=== PATIENT | female | born 1995 | race Caucasian/White ===

== ENCOUNTER 2021-08-25 18:45 | Outpatient (CLI) | payer OTHER, SELFPAY ==
[2021-08-25 18:54] VITALS: PULSE 93; O2SAT 98
[2021-08-25 18:59] VITALS: PULSE 93; O2SAT 98
[2021-08-25 19:01] VITALS: BP 124/82; PULSE 116; RESP 16; TEMP 37.1; O2SAT 98
[2021-08-25 19:02] VITALS: BP 124/82; PULSE 89
--- NOTE | 2021-08-25 22:15 | PC.OBNST ---
NST Note NST Note Start: 08/25/21 22:06 Freq: Status: Active Protocol: Document 08/25/21 21:24 [facility] (Rec: 08/25/21 22:15 [facility] [id number]) NST Note 2 Para (# of births) 1 EDC 09/05/21 Patient Presented with Complaint(s) of Contractions/cramping Other Complaints ROL Reactive Yes Appropriate for Gestational Age Yes EVELYN Antonio RN Date 08/25/21 Reactive Yes Appropriate for Gestational Age Yes EVELYN Javier RN Date 08/25/21 OB NST charge No Provider Evaluation of EFM Strip: Reactive: [] Appropriate for Gestational Age: [] Comments:
--- NOTE | 2021-08-25 22:16 | PC.OBNST ---
NST Note NST Note Start: 08/25/21 22:06 Freq: Status: Active Protocol: Document 08/25/21 21:24 [facility] (Rec: 08/25/21 22:15 [facility] [id number]) NST Note 2 Para (# of births) 1 EDC 09/05/21 Patient Presented with Complaint(s) of Contractions/cramping Other Complaints ROL Reactive Yes Appropriate for Gestational Age Yes EVELYN Antonio RN Date 08/25/21 Reactive Yes Appropriate for Gestational Age Yes EVELYN Javier RN Date 08/25/21 OB NST charge No Provider Evaluation of EFM Strip: Reactive: [] Appropriate for Gestational Age: [] Comments:
--- NOTE | 2021-08-25 22:22 | PC.OBNST ---
NST Note NST Note Start: 08/25/21 22:06 Freq: Status: Discharge Protocol: Document 08/25/21 21:24 [facility] (Rec: 08/25/21 22:15 [facility] [id number]) NST Note 2 Para (# of births) 1 EDC 09/05/21 Patient Presented with Complaint(s) of Contractions/cramping Other Complaints ROL Reactive Yes Appropriate for Gestational Age Yes EVELYN Antonio RN Date 08/25/21 Reactive Yes Appropriate for Gestational Age Yes EVELYN Javier RN Date 08/25/21 OB NST charge No Provider Evaluation of EFM Strip: Reactive: [] Appropriate for Gestational Age: [] Comments:
--- NOTE | 2021-08-25 22:24 | PC.OBNST ---
NST Note NST Note Start: 08/25/21 22:06 Freq: Status: Discharge Protocol: Document 08/25/21 21:24 [facility] (Rec: 08/25/21 22:15 [facility] [id number]) NST Note 2 Para (# of births) 1 EDC 09/05/21 Patient Presented with Complaint(s) of Contractions/cramping Other Complaints ROL Reactive Yes Appropriate for Gestational Age Yes EVELYN Antonio RN Date 08/25/21 Reactive Yes Appropriate for Gestational Age Yes EVELYN Javier RN Date 08/25/21 OB NST charge No Provider Evaluation of EFM Strip: Reactive: [] Appropriate for Gestational Age: [] Comments:
--- NOTE | 2021-08-26 11:40 | PC.OBNST ---
NST Note NST Note Start: 08/25/21 22:06 Freq: Status: Discharge Protocol: Document 08/25/21 21:24 [facility] (Rec: 08/25/21 22:15 [facility] [id number]) NST Note 2 Para (# of births) 1 EDC 09/05/21 Patient Presented with Complaint(s) of Contractions/cramping Other Complaints ROL Reactive Yes Appropriate for Gestational Age Yes EVELYN Antonio RN Date 08/25/21 Reactive Yes Appropriate for Gestational Age Yes EVELYN Javeir RN Date 08/25/21 OB NST charge No Provider Evaluation of EFM Strip: Reactive: [] Appropriate for Gestational Age: [] Comments:
--- NOTE | 2021-08-26 14:24 | PC.OBNST ---
NST Note NST Note Start: 08/25/21 22:06 Freq: Status: Discharge Protocol: Document 08/25/21 21:24 [facility] (Rec: 08/25/21 22:15 [facility] [id number]) NST Note 2 Para (# of births) 1 EDC 09/05/21 Patient Presented with Complaint(s) of Contractions/cramping Other Complaints ROL Reactive Yes Appropriate for Gestational Age Yes EVELYN Antonio RN Date 08/25/21 Reactive Yes Appropriate for Gestational Age Yes EVELYN Javier RN Date 08/25/21 OB NST charge No Provider Evaluation of EFM Strip: Reactive: [] Appropriate for Gestational Age: [] Comments:
== END 2021-08-25 21:24 | disposition home or self-care (01) ==
LOC: OB OUT 19:03 → OB 19:53
PROVIDERS: PCP Family Medicine; Visit Provider Obstetrics & Gynecology
DX: O47.1 False labor at or after 37 completed weeks of gestation (principal); Z3A.38 38 weeks gestation of pregnancy
CPT/HCPCS: 59025; 99211

== ENCOUNTER 2021-09-02 02:49 | Inpatient (IN) | payer OTHER, SELFPAY ==
[2021-09-02] VITALS (55 sets, daily range): BP systolic 80–119; BP diastolic 45–82; PULSE 64–123; RESP 16–18; TEMP 36.6–36.8; O2SAT 97–100; BMI 28.5
[2021-09-02] MEDS: LACTATED RINGERS 1000 ML 1,000 ML 125 ML IV ×2 (03:31→04:30)
--- NOTE | 2021-09-02 03:50 | P.ANBPRC_ITS ---
PFSH PFSH Medical History (Updated 08/25/21 @ 20:19 by Henrietta Perez) History of hyperthyroidism History of varicella Hyperthyroidism Family History (Updated 08/19/21 @ 14:11 by Grace Blum) Paternal Grandmother Breast cancer, Onset Age: 76 Paternal Grandfather Heart disease Maternal Grandmother Ovarian cancer, Onset Age: 70 Social History Smoking Status: Never smoker Meds Home Medications and Allergies Home Medications Medication Instructions Recorded Confirmed Type ferrous sulfate 325 mg (65 mg 325 mg PO DAILY 08/25/21 09/02/21 History iron) tablet prenat.vits,abdirahman,[id number]-[id number] 1 tab PO QDAY 08/26/21 09/02/21 History Allergies Allergy/AdvReac Type Severity Reaction Status Date / Time No Known Allergies Allergy Verified 09/02/21 03:58 Results Vital Signs Vital Signs: Last Vital Signs Temp 97.8 F 09/02/21 03:36 Pulse 91 09/02/21 03:37 Resp 18 09/02/21 03:36 BP 110/65 09/02/21 03:37 Weight: 75.495 kg Height: 162.56 cm Anesthesia Procedures Epidural Insertion Patient Location: OB Reason for Block: primary anesthetic Patient Position: sitting Performed By: Femi Powell Preanesthetic Checklist: IV checked, risks and benefits discussed, surgical consent, monitors and equipment checked, pre-op evaluation, timeout performed and anesthesia consent Prep: chlorhexidine gluconate Monitoring: blood pressure monitoring, soda fountain operator, continuous pulse oximetry and heart rate Approach: midline Vertebral Space: lumbar (1-5) Epidural Technique: [place] saline Needle Type: Tuohy needle Injection Technique: continuous shot (catheter) Needle gauge: 17 Needle Length (cm): 10 cm Needle Insertion Depth (cm): 5 Catheter Gauge: 19 Catheter Type: multi-orifice Catheter at skin depth (cm): 10 Test Dose Result: negative and lidocaine 1.5% with epinephrine 1 to 200,000
[2021-09-02] MEDS: LIDOCAINE 2% (PF) 5 ML VIAL EPIDURAL (03:59)
[2021-09-02 04:04] LABS: SARS PCR* Negative SARS-CoV-2 (Negative)
[2021-09-02] MEDS: ROPIVACAINE 0.2% 100 ml 100 ML 12 MG EPIDURAL (04:07)
[2021-09-02] MEDS: PHENYLEPHRINE 100 MCG/ML SYRINGE IVP ×4 (04:24→06:56)
[2021-09-02] MEDS: ePHEDrine sulfate 5 MG/ML inj 10 MG IVP (04:48)
--- NOTE | 2021-09-02 06:45 | P.LDBA_ITS ---
Subjective History of Present Illness Narrative: Patient is being admitted to Labor and Delivery for early labor with cervical change. She is a 26 year old at weeks gestation. Her full history and physical was dictated by Onur Diaz CNM on 08/18/21. Please see this for details. 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 Son is Romy. Baby: [place] gender 1. Closely spaced pregnancies.? Delivered 02/25/2020. 2. History of abnormal Pap Pap 03/07/2019:? LGSIL Moneta. 03/29/2019:? NIHARIKA 1 Pap 08/2020: NIL HPV 03/2020: neg. HPV 3. Baby to have renal ultrasound 24 hours after delivery for finding of bilateral hydronephrosis on US. Enriqueta started shari yesterday evening. contractions started getting painful ad consistent around midnight and she arrived at L&D around 0230. On admit she was 6cm per RN exam and made change to 7cm at 0500. Contractions have been spac ing out and patient is requesting AROM to augment labor. OB - H&P: Exam Physical Exam: Vital signs: Temp Pulse Resp BP Pulse Ox 97.8 F 75 18 92/50 L 100 09/02/21 03:36 09/02/21 06:40 09/02/21 03:36 09/02/21 06:40 09/02/21 04:11 Constitutional: Constitutional: no acute distress Routine HEENT Exam: Head: Present atraumatic Routine Neck Exam: Neck: Present full ROM Detailed Labor and Delivery Exam: Patient Gravid: yes Dilation (cm): 7 Effacement (%): 90 Cervix position: mid Consistency: medium Contraction frequency (min): 7 Tachysystole: No Contraction intensity: Moderate Fetus (Single): Station: 0 Amniotic Membrane Status: AROM Amniotic Membrane Fluid Description: Clear Heart Rate Baseline: 135 Monitor Accelerations: Present Monitor Decelerations: None Ammonium Sulfate Operator Variability: Moderate (11-25) (6-25) Routine Back/Spine/Pelvis Exam: Back/Spine: full ROM Routine Psychiatric Exam: Present normal affect OB - Problem Based A/P Additional Plan (1) : Status: Acute Plan ASSESSMENT:? at 39.4 weeks gestation? GBS negative? Uncomplicated ? ?? PLAN:?? 1. AROM or labor augmentation? 2. Comfortable with an epidural anesthesia.? 3. Anticipate ? 4. Consider Pitocin if needed. ?
[2021-09-02] MEDS: OXYTOCIN 30 unit/500 ML in NS 30 UNIT/500 ML BAG 300 UNIT IVPB (08:40)
--- NOTE | 2021-09-02 08:58 | PM.OBPRCVD ---
Procedure Delivery date: 09/02/21 Procedure Done: Global Events: Other ( Renal bilateral hydronephrosis) Intrapartal Events: None Delivery augmentation: rupture of membranes Delivery monitor: external FHT and external uterine Route of delivery: Laceration description: None Estimated blood loss (mL): 25 Anesthesia type: Epidural Disposition: floor Narrative: The patient is a 26 year-old admitted on 09/02/2021 at 39 Weeks, 4 Days gestation for spontaneous onset of labor.? Cervical exam on admission was 5 cm/80 % effaced/-1 station with membranes intact in vertex presentation.? Contractions were every 2 minutes.? heart rate demonstrated baseline 135 bpm with moderate variability, + accelerations, - decelerations; a category 1 tracing.? AROM occurred at 0659 with clear fluid. ? Labor Analgesia:? Epidural ? Pitocin:? Yes, [facility]TS[facility] only ? Labor onset:? 09/02/2021 at 0000 ? Complete:? 0812, assumed with pushing ? Pushing:? 0812 ? heart tones during second stage were reassuring. ? Patient labored comfortably with epidural. AROM noted at 0659 AM with clear fluid. Patient assumed complete at time of pushing at 0812 AM. of a viable female at 0839 AM. Vertex delivered OA. No nuchal cord or shoulder. Body delivered easily and without incident. Infant passed to mothers abdomen with a vigorous cry. Cord was clamped and cut at > 5 minutes. APGARS were 8 at one minute and 9 at five minutes respectively. Mouth was bulb suctioned. Intact placenta with a 3 vessel cord delivered spontaneous at 0945AM. Fundus firm. Intact perineum.. QBL 50 cc. Mother and baby stable; mother plans to breastfeed. weight pending. ? Placenta delivered spontaneously and complete at 0848 with a 3 vessel cord. ? Mother and were stable after delivery. ? Lacerations:? Intact ? Blood loss: 50 mL. Blood loss measurement type: QBL ? Sponge and needles counts are correct. Infant Gender: Female presentation: vertex Placental Delivery Description: Spontaneous Cord Description: 3 Vessels OB Vag Delivery Procedures Additional Procedures ECV: No Cook Catheter Insertion: No NST: No D&C: No Laceration Repair: No Tubal Ligation : No Other: No
[2021-09-02] MEDS: IBUPROFEN 600 MG TABLET PO ×2 (12:27→18:48)
[2021-09-02] MEDS: ACETAMINOPHEN 500 MG TABLET 1000 MG PO ×2 (16:27→22:38)
[2021-09-03] MEDS: IBUPROFEN 600 MG TABLET PO (00:52)
[2021-09-03 00:53] VITALS: BP 105/68; PULSE 86; RESP 16; TEMP 36.4; O2SAT 98
[2021-09-03] MEDS: ACETAMINOPHEN 500 MG TABLET 1000 MG PO (04:19)
[2021-09-03 04:20] VITALS: BP 107/73; PULSE 77; RESP 16; TEMP 36.6; O2SAT 97
--- NOTE | 2021-09-03 07:16 | PM.OBDSVD1 ---
DS: Providers Provider Date of admission: 09/02/21 02:49 Primary care physician: Edmundo Ambrocio MD Admitting Clinician: Nubia Fernandez MD Attending Physician on discharge: Nubia Fernandez MD Date of Discharge: 09/03/21 DS: Diagnosis Discharge Diagnosis (1) : Status: Acute DS: Medications Discharge Medications Other Medication Instructions: You can take 625-1000 mg of Tylenol as needed for pain. Exam Const: Vital Signs, click to edit/add: Vital Signs - 24 hr 09/02/21 07:24 09/02/21 07:37 09/02/21 07:52 Temperature Pulse Rate 90 78 88 Pulse Rate [Pulse Oximeter] Respiratory Rate Blood Pressure 97/54 L 101/57 L 94/52 L Blood Pressure [Le ft Arm] Pulse Oximetry 09/02/21 08:07 09/02/21 08:19 09/02/21 08:24 Temperature 97.9 F Pulse Rate 81 105 H Pulse Rate [Pulse Oximeter] Respiratory Rate Blood Pressure 101/57 L 94/51 L Blood Pressure [Le ft Arm] Pulse Oximetry 09/02/21 08:37 09/02/21 08:48 09/02/21 09:03 Temperature 98.1 F Pulse Rate 123 H 100 88 Pulse Rate [Pulse Oximeter] Respiratory Rate 16 Blood Pressure 87/55 L 101/52 L 103/52 L Blood Pressure [Le ft Arm] Pulse Oximetry 09/02/21 09:18 09/02/21 09:33 09/02/21 09:48 Temperature Pulse Rate 80 85 78 Pulse Rate [Pulse Oximeter] Respiratory Rate Blood Pressure 104/55 L 108/56 L 112/61 Blood Pressure [Le ft Arm] Pulse Oximetry 09/02/21 10:03 09/02/21 10:18 09/02/21 10:33 Temperature 97.9 F Pulse Rate 91 78 89 Pulse Rate [Pulse Oximeter] Respiratory Rate 16 Blood Pressure 104/55 L 108/58 L 114/61 Blood Pressure [Le ft Arm] Pulse Oximetry 09/02/21 12:27 09/02/21 12:30 09/02/21 16:23 Temperature 98.3 F 98.3 F 97.8 F Pulse Rate Pulse Rate [Pulse Oximeter] 108 H 82 Respiratory Rate 16 16 Blood Pressure Blood Pressure [Le ft Arm] 100/54 L 119/82 Pulse Oximetry 97 98 09/02/21 20:43 09/03/21 00:53 09/03/21 04:20 Temperature 98 F 97.6 F 98 F Pulse Rate Pulse Rate [Pulse Oximeter] 71 86 77 Respiratory Rate 16 16 16 Blood Pressure Blood Pressure [Le ft Arm] 110/67 105/68 107/73 Pulse Oximetry 98 98 97 Documenting provider has reviewed patient's vital signs: yes Common normals: no apparent distress, average body habitus, oriented x3, no limitations, healthy appearing, alert and well nourished General appearance: cooperative, comfortable and well kempt Neck & C-Spine: Common normals: full ROM General: normal visual inspection Resp: Common normals: normal respiratory effort, no retractions, no use of accessory muscles and clear to auscultation bilaterally Auscultation: clear to auscultation bilaterally Cardio: Common normals: regular rate, regular rhythm, S1 normal heart sound, S2 normal heart sound, no gallops, no clicks and no murmurs Rate: regular rate Rhythm: regular rhythm Heart sounds: S1 normal and S2 normal GI: Common normals: Normal to inspection, nondistended, normoactive bowel sounds present, soft to palpation and non-tender Inspection: normal to inspection Palpation: soft : Common normals: external appearance normal and appearance of the vagina normal OB/external & speculum: Yes external exam normal Uterus: U/2 Lochia: small Extremity: Common normals: normal to inspection and full ROM Neuro: Common normals: oriented x3 Sensorium/orientation: alert Psych: Common normals: mental status grossly normal, thought process normal, cooperative, affect normal, speech normal and activity/motor behavior normal Appearance: well kempt Speech: normal speech Thought process: normal thought process OB - DS: Summary Hospital Course Hospital Course: The patient is a 26 year old G 2 P 1 at 39.5 weeks gestation that was admitted to the Center on 09/02/21 for spontaneous labor. She had an uncomplicated vaginal delivery. She delivered a viable female . She is breast feeding and denies problems or concerns. the patient has done well. Peripartum Data delivery method: Vaginal Laceration description: None Episiotomy description: None complications: none Infant Gender: Female Discharge Plan: Home Status at Discharge Functional status at discharge: independent ambulation Overall status at discharge: patient is progressing back to baseline Time Spent with Patient Time attestation: Total time spent providing and/or coordinating discharge services: Discharge Plan Discharge Disposition: Home, Self-Care Date of Admission: 09/02/21 02:49 Primary Care Provider: Edmundo Ambrocio Condition: Stable Anticipated Discharge Date/Time: 09/03/21 12:00 Discharge Medications: New docusate sodium 100 mg Capsule 100 mg PO DAILY Qty: 100 0RF Rx Instructions: Take 1-2 tablets daily as needed for constipation. ibuprofen 600 mg Tablet 600 mg PO Q6H PRN (Reason: Pain) Qty: 60 0RF Continued prenat.vits,abdirahman,[id number] Tablet 1 tab PO QDAY 0RF ferrous sulfate 325 mg (65 mg iron) tablet 325 mg PO DAILY 0RF Discharge Orders: Discharge Order (Routine); Ordered 09/03/21 Ordered By: Caren Lopez Patient Education: OB Over the Counter Medication Information, OB Vaginal/Breast Feeding Activity Level: No Restrictions and Activity as Tolerated Discharge Diet: Regular Follow Up Appointments: Sarah Rosas CNM [Certified Nurse Shipping Track Supervisor] - Kristi Ricks CNM [Certified Nurse Shipping Track Supervisor] - Daria Chen CNP [Nurse Practitioner] - Elaine Diaz CNM [Certified Nurse Shipping Track Supervisor] - Caren Lopez CNM [Certified Nurse Shipping Track Supervisor] - Henrietta Bloom MD [Staff Physician] - Nuha Dorantes PA-C [Physician Automotive Software Engineer] - Nubia Fernandez MD [Staff Physician] - Deanna Pedersen MD [Staff Physician] - Forms: [employer] Info Instructions Discharge Comment: Follow up at 2 and 6 weeks with any of the above.
[2021-09-03 07:18] LABS: Hemoglobin* 9.7 gm/dL (12.0-16.0)
[2021-09-03 07:42] VITALS: BP 95/66; PULSE 85; RESP 16; TEMP 36.3; O2SAT 97
== END 2021-09-03 11:10 | disposition home or self-care (01) | DRG 807 ==
LOC: OB OUT 02:50 → OB 02:50
PROVIDERS: Advanced Practice Midwife; Admitting Provider Obstetrics & Gynecology; PCP Family Medicine; Visit Provider Obstetrics & Gynecology
DX: O35.8XX0 Maternal care for other (suspected) fetal abnormality and damage, not applicable or unspecified (principal); Z37.0 Single live birth; Z3A.39 39 weeks gestation of pregnancy
CPT/HCPCS: 01967; 36415; 85018; 87635; A9270; J2370; J2795; J7120

== ENCOUNTER 2021-11-23 14:00 | Outpatient (RCR) | payer OTHER, SELFPAY | END 2022-03-25 14:34 | disposition home or self-care (01) | PROVIDERS: PCP Family Medicine; Visit Provider Advanced Practice Midwife | DX: N94.9 Unspecified condition associated with female genital organs and menstrual cycle (principal); Z51.89 Encounter for other specified aftercare | CPT/HCPCS: 97110; 97140; 97162 ==

== ENCOUNTER 2023-10-07 13:57 | Outpatient (CLI) | payer OTHER, SELFPAY ==
--- NOTE | 2023-10-07 14:00 | CRLHL7_ITS ---
For Patients: As a result of the Cures Act, medical imaging exams and procedure reports are released immediately into your electronic medical record. You may view this report before your referring provider. If you have questions, please contact your health care provider. INDICATION: First trimester scan, establish dates. COMPARISON: None. TECHNIQUE: Real-time galdamez-scale imaging of the pelvis was performed. FINDINGS: Sonographic imaging demonstrates a single living intrauterine gestation. The embryo demonstrates a regular cardiac rate measuring 180 beats per minute. The embryo`s crown-rump length measurement of 2.2 cm corresponds to a gestational age of 8 weeks 6 days with a sonographic due date of 05/12/2024. There is a normal-appearing yolk sac. There are no gross abnormalities noted within the embryo at this early state of development. The gestational sac has a normal appearance. There is no evidence of a perigestational hemorrhage. The amount of fluid within the sac appears appropriate for gestational age. The cervix is closed. The myometrium appears normal. The ovaries are of normal size. Corpus luteal cyst right ovary. There are no suspicious fluid collections noted in the cul-de-sac. IMPRESSION: Normal first trimester OB ultrasound exam. Gestational age calculated at 8 weeks 6 days with a sonographic due date of 05/12/2024. Dictated by Alvarez Nunes MD @ 10/10/2023 8:45:58 AM (Electronically Signed)
== END 2023-10-07 13:58 | disposition home or self-care (01) ==
LOC: US 13:58
PROVIDERS: PCP Family Medicine; Visit Provider Registered Nurse
DX: Z34.91 Encounter for supervision of normal pregnancy, unspecified, first trimester (principal); Z3A.08 8 weeks gestation of pregnancy
CPT/HCPCS: 76817; 86592; 86703; 86704; 86706; 86762; 86787; 86803; 86850; 86900; 86901; 87086; 87340; 87491; 87591

== ENCOUNTER 2023-10-19 12:18 | Outpatient (CLI) | payer OTHER, SELFPAY ==
--- NOTE | 2023-10-19 12:15 | CRLHL7_ITS ---
For Patients: As a result of the Century Cures Act, medical imaging exams and procedure reports are released immediately into your electronic medical record. You may view this report before your referring provider. If you have questions, please contact your health care provider. INDICATION: RLQ pain in COMPARISON: Obstetric ultrasound on 10/10/2023 TECHNIQUE: Real time galdamez scale imaging of the fetus was performed as well as color Doppler analysis of the umbilical vessels. FINDINGS: Redemonstration of a single living intrauterine gestation. The embryo demonstrates a regular cardiac rate measuring 171 beats per minute with crown-rump length measurement of 4.2 cm corresponding with a gestational age of 11 weeks and 1 day with a sonographic due date of 05/08/2024. There is a normal-appearing yolk sac. A small subchorionic hemorrhage is seen inferior to the gestational sac measuring 3.3 x 0.4 x 2.4 centimeters. The bilateral ovaries are within normal limits in appearance measuring 2.6 x 1.9 x 2.7 centimeters on the right and 2.6 x 1.3 x 1.5 centimeters on the left with normal blood flow bilaterally. Redemonstration of a right ovarian corpus luteal cyst. There are no suspicious fluid collections noted in the cul-de-sac. Additional sonographic evaluation of the right lower quadrant at area of pain demonstrates no abnormalities. The appendix is not visualized. IMPRESSION: 1. Single living intrauterine gestation with estimated gestational age of 11 weeks and 1 day and estimated delivery date of 05/08/2024. 2. Small subchorionic hemorrhage inferior to the gestational sac. 3. Additional sonographic evaluation of the right lower quadrant at area of pain demonstrates no abnormalities. The appendix is not visualized. Dictated by Mal Bass MD @ 10/19/2023 1:20:56 PM (Electronically Signed)
--- OUTSIDE RECORDS SUMMARY | 2023-10-19 12:20 | XMS_ITS | Clinical Summary ---
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 Iliopsoas tendonitis and bursitis 06/19/2008 Ultrasound recheck of pyelectasis, antepar choco renal anomaly, single gestation Resolved Problems Problem Noted Date Diagnosed Date Resolved Date Unspecified part of closed f racture of clavicle 12/11/2007 01/06/2013 Immunizations Name Administration Dates Next Due DTP 1993,1993,1993 DTaP 06/03/1998,06/16/1995 HIB HbOC (HibTITER) 07/13/1995,1993,1993,1993 Hepatitis A (Peds) 10/05/2007 Hepatitis B (Peds) 06/29/1995,1993, 994 Influenza, IIV3 (Age >=3 years) 04/15/2006 MMR 06/25/2005,05/30/1995 Meningococcal Vaccine (Menactra) 04/15/2006 Oral Polio Vaccine 05/29/1998,05/30/1995, 994,1993 Td (Age >=7 Years) 06/25/2005 Family History Medical History Relation Name Comments Good Health Brother 2 Good Health Father Heart Disease Maternal Grandfather Unknown Maternal Grandfather Good Health Maternal Grandmother Good Health Mother Good Health Paternal Grandmother Relation Name Status Comments Brother 1 Alive Brother 2 Father Alive Maternal Grandfather anuerys m Maternal Grandmother Alive Mother Alive Paternal Grandfather Other Paternal Grandmother Other Social History Tobacco Use Types Packs/Day Years Used Date Smoking Tobacco: Never Smokeless Tobacco: Never Tobacco Cessation:Counseling Given: Yes Alcohol Use Standard Drinks/Week Comments No 0 (1 standard drink = 0.6 oz pur e alcohol) Sex and Gender Information Value Date Recorded Sex Assigned at Not on file Gender Identity Not on file Sexual Orientation Not on file Obstetrics History Para Term AB IAB SAB Ectopic Multiple Livin g Live Births 1 0 0 0 0 0 0 0 0 0 Date Outcome GA Total Labor Labor/2nd/3rd Weight Sex Type Anes PTL Leydi A1 A5 Name Clin Last Filed Vital Signs Vital Sign Reading Time Taken Comments Blood Pressure 111/70 07/12/2013 4:05 PM CDT Pulse 78 07/12/2013 4:05 PM CDT Temperature 36.4 ??C (97.5 ??F) 07/12/2013 4:05 PM CD T Respiratory Rate 18 10/06/2010 9:59 AM CDT Oxygen Saturation 100% 05/03/2013 4:05 PM DIRECTOR ON AIR Inhaled Oxygen Concentration - - Weight 56.2 kg (124 lb) 07/12/2013 4:05 PM CDT Height 163 cm (5' 4.17) 07/12/2013 4:05 PM CDT Body Mass Index 21.17 07/12/2013 4:05 PM CDT Plan of Treatment Health Maintenance Due Date Last Done Comments Tdap 2004 Depression screening for age 12+ 2005 HIV for age 15-65 2008 BMI (ht and wt on same day) for age 18+ 2011 Hepatitis C screening for ag e 18-79 2011 Tetanus booster 06/26/2015 06/25/2005 COVID-19 vaccine series (2022- season) 2022 02/10/2021 Pap test for age 21-65 09/12/2023 , 04/17/2020, 03/07/2019 Influenza for age 9-49 10/30/2023 04/15/2006 Pneumococcal series for age 6-64 Aged Out No longer eligible b ased on patient's age to complete this topic Procedures Procedure Name Priority Date/Time Associated Diagnosis Comments CURTAIN STRETCHER THIN PREP PAP SCREEN IMAGED Routine 09/11/2020 3:30 PM CDT from Last 3 Months or Most Recently Relevant to Health Maintenance Results * CURTAIN STRETCHER THIN PREP PAP SCREEN IMAGED (09/11/2020 3:30 PM CDT) Case Report Gynecologic Cytology Report ? Case: [id number] ? Authorizing Provider: ??Rosalia Gould ??Collected: ? 09/11/2020 1530 ? M, MD ? Ordering Location: ? [facility] ?Received: ?09/15/2020 0853 ? First Screen: ?Kenyatta Lawson ? Specimen: ?CURTAIN STRETCHER ThinPrep Vial Screening, Cervical/Vaginal ? 09/23/2020 3:26 PM CDT [facility] INTERPRETATION/ RESULT NEGATIVE FOR INTRAEPITHELIAL LESION OR MALIGNANCY (NIL) (none) 09/23/2020 3:26 PM CDT [facility] IMEN ADEQUACY Satisfactory for evaluation Endocervical component present 09/23/2020 3:26 PM CDT [facility] HPV REQUEST HPV not requested 2020 3:26 PM CDT [facility] Date of LMP 09/23/2020 3:26 PM CDT [facility] Comment:HS Last Pap Date 04/17/2020 09/23/2020 3:26 PM CDT [facility] Last Pap Result UNS 3:26 PM CDT [facility] Comment:Neg hpv Menstrual Status 09/23/2020 3:26 PM CDT [facility] Comment:IUD Additional Information 09/23/2020 3:26 PM CDT [facility] Comment: Interpreted at [facility], Central Laboratory - [address], [place] [address] Automated Review Successful 09/23/2020 3:26 PM T [facility] Comment:Specimen processed s uccessfully by automated container repairer device, ThinPrep Imaging System, [employer] Note The pap test is a screening technique, not a diagnostic procedure. It is used primarily to screen for squamous cancers and precursor lesions. Published studies have shown that it is subject to both false negative and false positive results. The pap test should not be used as the sole means to diagnose or exclude pre-malignant and malignant lesions. 09/23/2020 3:26 PM CDT [facility] [employer] [facility] ENTRAL LABORATORY Other (Cervical/Vagina l) 09/11/2020 3:30 PM CDT 09/15/2020 8:53 AM CDT Rosalia Gould MD PATHOLOGY/ CYTOLOGY [facility] [address] [place], [place] [address] [place] [address], from Last 3 Months or Most Recently Relevant to Health Maintenance Care Teams Hand Thermal Cutter Relationship Specialty Start Date End Date Edmundo Ambrocio MD [address] [place] [address] PCP - General Family Practice 07/13/21 Daria Chen NP [address] [place] [address] ASSOCIATE PROFESSOR OF PSYCHOLOGY Nurse Practitioner 07/13/21
--- NOTE | 2023-10-19 14:30 | CRLHL7_ITS ---
For Patients: As a result of the Century Cures Act, medical imaging exams and procedure reports are released immediately into your electronic medical record. You may view this report before your referring provider. If you have questions, please contact your health care provider. Indication: RLQ PAIN Technique: CT abdomen/pelvis with IV contrast, Comparison: Same day pelvic ultrasound Findings: Lower thorax: Unremarkable Abdomen/pelvis: The liver, gallbladder and biliary system, spleen, pancreas, adrenal glands, kidneys, ureters, and bladder are unremarkable in appearance. Intrauterine better evaluated on dedicated pelvic ultrasound. The bilateral ovaries are within normal limits in appearance with small right corpus luteal cyst. There is no evidence of bowel obstruction or inflammation. The appendix is normal in appearance. No free fluid or free air. No abscess. No abdominopelvic lymphadenopathy. The vasculature is unremarkable. Soft tissue/musculoskeletal: Minimal diastasis recti with tiny fat containing umbilical hernia. Right sacroiliac arthrodesis without hardware related complication; otherwise, the osseous structures are unremarkable. Impression: 1. No CT evidence of an acute process involving the abdomen or pelvis; specifically, no CT evidence of acute appendicitis. 2. Intrauterine gestation better appreciated on dedicated same-day pelvic ultrasound. Please note that all CT scans at this facility use dose modulation, iterative reconstruction, and/or weight-based dosing when appropriate to reduce radiation dose to as low as reasonably achievable. Dictated by Mal Bass MD @ 10/19/2023 2:43:29 PM (Electronically Signed)
== END 2023-10-19 12:19 | disposition home or self-care (01) ==
PROVIDERS: PCP Family Medicine; Visit Provider Registered Nurse
DX: O26.899 Other specified pregnancy related conditions, unspecified trimester (principal); R10.31 Right lower quadrant pain
CPT/HCPCS: 74177; 76801; 87086; 93976; Q9967

== ENCOUNTER 2023-12-26 13:00 | Outpatient (CLI) | payer OTHER, SELFPAY ==
--- NOTE | 2023-12-26 13:00 | CRLHL7_ITS ---
For Patients: As a result of the Century Cures Act, medical imaging exams and procedure reports are released immediately into your electronic medical record. You may view this report before your referring provider. If you have questions, please contact your health care provider. INDICATION: Evaluate anatomy. COMPARISON: 09/29/2023 TECHNIQUE: Real time galdamez scale imaging of the fetus was performed as well as color Doppler analysis of the umbilical vessels. FINDINGS: Sonographic imaging demonstrates a single living intrauterine gestation. Fetus demonstrates a regular cardiac rate of 142 beats per minute. Fetus has a variable position. The placenta lies posteriorly without evidence of placenta previa. Edge of the placenta is located 7.1 cm from the internal cervical os. Amniotic fluid volume appears normal. Single deepest vertical pocket: 4.0 cm. The cervix is closed and measures 4.9 cm in length. The composite ultrasound gestational age is calculated at 20 weeks 2 days with an estimated sonographic due date of 05/12/2024. The estimated weight is 364 grams which lies at the 79th %. The following biometric measurements were obtained: Biparietal diameter: 4.4 cm/19 weeks 3 days 24th% Head circumference: 17.0 cm/19 weeks 4 days 26th% Abdominal circumference: 16.3 cm/21 weeks 2 days 85th% Femur length: 3.2 cm/20 weeks 0 days 45th% The HC/AC ratio measures: 1.05 range (1.07-1.25) On anatomic survey, there is a normal appearance of the cerebral ventricles, cavum septi pellucidi, cisterna magna and cerebellum. The nose, lips, and facial profile appear normal. The cervical, thoracic and lumbar spine are not well visualized. There is a normal four-chamber heart view and the left and right ventricular outflow tracts appear normal. The diaphragm and stomach appear normal. The kidneys and bladder also appear normal. There is a normal three-vessel cord and cord insertion site. The four extremities appear normal. IMPRESSION: Concordance of clinical and sonographic dating. Incomplete visualization of the spine. Remainder of the anatomic survey normal. Short-term follow-up recommended. Dictated by Alvarez Nunes MD @ 12/27/2023 7:13:22 AM (Electronically Signed)
--- OUTSIDE RECORDS SUMMARY | 2023-12-26 13:05 | XMS_ITS | Clinical Summary ---
Author Organization [employer] [facility] Address [place], [place] [address] Care Team Providers Care Smt Technician Name Role Phone Edmundo Ambrocio MD Primary Care Provider [phone] Daria Chen BINDERY OPERATOR Unavailable [phone] Allergies No known active allergies Medications Medication Sig Dispensed Refills Start Date End Date Status DME SI belt 1 Each 0 05/23/2013 Active meloxicam (MOBIC) 7.5 mg tablet Taking 7.5 mg twice per day 0 07/12/2013 Active Active Problems Problem Noted Date Diagnosed Date Chronic right SI joint pain 05/03/2013 Overview (05/03/2013): With instability and shifting of the joint. [...] Alive Brother 2 Father Alive Maternal Grandfather you m Maternal Grandmother Alive Mother Alive Paternal [...] CDT Oxygen Saturation 100% 05/03/2013 4:05 PM SANDAL PARTS ASSEMBLER Inhaled Oxygen Concentration - - Weight 56.2 [...] e 18-79 2011 Tetanus booster 06/26/2015 06/25/2005 Pap test for age 21-65 09/12/2023 , 04/17/2020, 03/07/2019 COVID-19 vaccine series ( season) 2023 02/10/2021 Influenza for age 9-49 10/30/2023 04/15/2006 Pneumococcal series for age 6-64 Aged Out No longer eligible b ased on patient's age to complete this topic Procedures Procedure Name Priority Date/Time Associated Diagnosis Comments CELLAR SUPERVISOR THIN PREP PAP SCREEN IMAGED Routine 09/11/2020 3:30 PM CDT from Last 3 Months or Most Recently Relevant to Health Maintenance Results * CELLAR SUPERVISOR THIN PREP PAP SCREEN IMAGED (09/11/2020 3:30 PM CDT) Case Report Gynecologic Cytology Report ? Case: [id number] ? Authorizing Provider: ??Rosalia Gould ??Collected: ? 09/11/2020 1530 ? M, MD ? Ordering Location: ? [facility] ?Received: ?09/15/2020 0853 ? First Screen: ?Kenyatta Lawson ? Specimen: ?CELLAR SUPERVISOR ThinPrep Vial Screening, Cervical/Vaginal ? 09/23/2020 3:26 PM CDT [facility] INTERPRETATION/ RESULT NEGATIVE FOR INTRAEPITHELIAL LESION OR MALIGNANCY (NIL) (none) 09/23/2020 3:26 PM CDT [facility] IMEN ADEQUACY Satisfactory for evaluation Endocervical component present 09/23/2020 3:26 PM CDT [facility] HPV REQUEST HPV not requested 2020 3:26 PM CDT [facility] Date of LMP 09/23/2020 3:26 PM CDT [facility] Comment:HS Last Pap Date 04/17/2020 09/23/2020 3:26 PM CDT [facility] Last Pap Result UNS 3:26 PM CDT [facility] Comment:Neg hpv Menstrual Status 09/23/2020 3:26 PM CDT [facility] Comment:IUD Additional Information 09/23/2020 3:26 PM CDT [facility] Comment: Interpreted at [facility], Central Laboratory - [address], [place] [address] Automated Review Successful 09/23/2020 3:26 PM CDT [facility] Comment:Specimen processed s uccessfully by automated family and divorce legal assistant device, ThinPrep Imaging System, [employer] Note The pap test is a [...] and malignant lesions. 09/23/2020 3:26 PM CDT [facility] Other (Cervical/Vagina l) 09/11/2020 3:30 PM CDT 09/15/2020 8:53 AM CDT Rosalia Gould MD PATHOLOGY/ CYTOLOGY [facility] [employer] [facility] [address] [facility] [address] [place] [address], from Last 3 Months or Most Recently Relevant to Health Maintenance Care Teams Smt Technician Relationship Specialty Start Date End Date Edmundo Ambrocio MD [address] [place] [address] PCP - General Family Practice 07/13/21 Daria Chen NP [address] [place] [address] PRINTED CIRCUIT BOARDS SOLDER LEVELER Nurse Practitioner 07/13/21
== END 2023-12-26 13:01 | disposition home or self-care (01) ==
LOC: US 13:01
PROVIDERS: PCP Family Medicine; Visit Provider Obstetrics & Gynecology
DX: Z34.92 Encounter for supervision of normal pregnancy, unspecified, second trimester (principal); Z3A.20 20 weeks gestation of pregnancy
CPT/HCPCS: 76805

== ENCOUNTER 2024-01-23 12:12 | Outpatient (CLI) | payer OTHER, SELFPAY ==
--- NOTE | 2024-01-23 12:15 | CRLHL7_ITS ---
For Patients: As a result of the Century Cures Act, medical imaging exams and procedure reports are released immediately into your electronic medical record. You may view this report before your referring provider. If you have questions, please contact your health care provider. OBSTETRICAL ULTRASOUND, 01/23/2024 COMPARISON: 12/26/2019. AVIS by LMP: 05/14/2024. GA: 24w, 0d. INDICATION: Follow-up spine. TECHNIQUE: Transabdominal. FINDINGS: position: Posterior. Cervix: Visualized. Length of closed cervix: 3.9 cm. Placenta/cord: Posterior. WILLIAMS: 5.5 cm BPD: 5.7 cm. 23w 3d, 25 percent. HC: 21.5 cm. 23w 4d, 18 percent. AC: 19.8 cm. 24w 1d, 55 percent. FL: 4.3 cm. 24w 1d, 42 percent. FL/AC: 21.9 percent. HC/AC Ratio: 1.1. Heart rate: 150 beats per minute. age by this US: 23w 6d. AVIS by this US: 05/15/2024. EFW: 669.6 g. Weight: 1 lbs, 6 oz. Percentile by AVIS: 50 percent. IMPRESSION: 1. Estimated weight is at the 50th percentile. 2. Positioning somewhat suboptimal for evaluation of the spine, however the included cine clip of the spine appears normal without evidence for neural tube defects. 3. Bilateral renal pyelectasis measuring 5 mm on each side. CAROLINE HARDY M.D. Transcribed: 10:06 a.m. [email or web address] JR/Dictated by: Caroline Hardy MD @ 01/24/2024 9:12:00 AM (Electronically Signed)
--- OUTSIDE RECORDS SUMMARY | 2024-01-23 12:15 | XMS_ITS | Clinical Summary ---
Author Organization [email or web address] [facility] Address [place], [place] [address] Care Team Providers Care Vascular Sonographer Name Role Phone Edmundo Ambrocio MD Primary Care Provider [phone] Daria Chen ELECTRICAL INSTRUMENT REPAIRER Unavailable [phone] Allergies No known active allergies Medications Medication [...] 78 07/12/2013 4:05 PM CDT Temperature 36.4 C (97.5 F) 07/12/2013 4:05 PM CDT Respiratory Rate 18 10/06/2010 9:59 AM CDT Oxygen Saturation 100% 05/03/2013 4:05 PM CAREER COORDINATOR Inhaled Oxygen Concentration - - Weight 56.2 [...] Procedure Name Priority Date/Time Associated Diagnosis Comments PRESS OPERATOR ASSISTANT THIN PREP PAP SCREEN IMAGED Routine 09/11/2020 3:30 PM CDT from Last 3 Months or Most Recently Relevant to Health Maintenance Results * PRESS OPERATOR ASSISTANT THIN PREP PAP SCREEN IMAGED (09/11/2020 3:30 PM CDT) Case Report Gynecologic Cytology Report Case: [id number] Authorizing Provider: Rosalia Gould Collected: 09/11/2020 1530 MMD Ordering Location: [facility] Received: 09/15/2020 0853 First Screen: Kenyatta Lawson Specimen: PRESS OPERATOR ASSISTANT ThinPrep Vial Screening, Cervical/Vaginal 09/23/2020 3:26 PM CDT [facility] INTERPRETATION/ RESULT NEGATIVE FOR INTRAEPITHELIAL LESION OR MALIGNANCY (NIL) (none) 09/23/2020 3:26 PM CDT [facility] IMEN ADEQUACY Satisfactory for evaluation Endocervical component present 09/23/2020 3:26 PM CDT [facility] HPV REQUEST HPV not requested 2020 3:26 PM CDT [facility] Date of LMP 09/23/2020 3:26 PM CDT [facility] Comment:HS Last Pap Date 04/17/2020 09/23/2020 3:26 PM CDT [facility] Last Pap Result UNS 3:26 PM CDT [facility] Comment:Neg hpv Menstrual Status 09/23/2020 3:26 PM CDT [facility] Comment:IUD Additional Information 09/23/2020 3:26 PM CDT [facility] Comment: Interpreted at [facility] - [address], [place] [address] Automated Review Successful 09/23/2020 3:26 PM CDT [facility] Comment:Specimen processed s uccessfully by automated fusing furnace loader device, [employer] Imaging System, [employer] Note The pap test is a [...] and malignant lesions. 09/23/2020 3:26 PM CDT [facility] Other (Cervical/Vagina l) 09/11/2020 3:30 PM CDT 09/15/2020 8:53 AM CDT Rosalia Gould MD PATHOLOGY/ CYTOLOGY [facility] [address] [place] [address], from Last 3 Months or Most Recently Relevant to Health Maintenance Care Teams Vascular Sonographer Relationship Specialty Start Date End Date Edmundo Ambrocio MD [address] [place] [id number] PCP - General Family Practice 07/13/21 Daria Chen NP [address] [place] [address] OIL RIG DRILLER Nurse Practitioner 07/13/21
== END 2024-01-23 12:13 | disposition home or self-care (01) ==
LOC: US 12:13
PROVIDERS: PCP Family Medicine; Visit Provider Obstetrics & Gynecology
DX: Z34.92 Encounter for supervision of normal pregnancy, unspecified, second trimester (principal); O99.891 Other specified diseases and conditions complicating pregnancy; Z3A.24 24 weeks gestation of pregnancy
CPT/HCPCS: 76816

== ENCOUNTER 2024-02-20 00:22 | Emergency (ER) | payer OTHER, SELFPAY ==
--- OUTSIDE RECORDS SUMMARY | 2024-02-20 00:24 | XMS_ITS | Patient Health Record ---
Author Organization [facility] Address [address] [facility] [address] [place] [address] Care Team Providers Care Medical Office Technologist Name Role Phone Deanna Pedersen Primary Care Provider Alex SOMERS MD, CRISS Unavailable [phone] Ann Marie MASON, Kenyatta Unavailable [phone] Reason For Referral No Information Medications Medication SIG (Take, Route, Frequency, Duration) Notes Start Date End Date Status Active Plan Of Treatment No Information Insurance Providers Payer Name Payer Address Payer Phone Subscriber Number Group Number Insured Name Patient Relationship to Insured Coverage Start Date Coverage End Date [employer] [address] [address] [place] [address] [id number] Enriqueta Aguilar Self - patient is the insured
[2024-02-20 00:33] VITALS: BP 121/67; PULSE 108; RESP 18; TEMP 36.7; O2SAT 99; BMI 25.8
--- NOTE | 2024-02-20 01:03 | ED_ITS ---
HPI - Nausea/Vomiting/Diarrhea General Date Seen: 02/20/24 Chief complaint: Nausea/Vomiting Stated complaint: 28 wks preg/vomiting/shaking Time Seen by Provider: 02/20/24 00:30 Source: patient and family Mode of arrival: ambulatory Limitations: no limitations History of Present Illness HPI Narrative: Patient is a 28-year-old at 28 weeks gestation, who had epigastric bilateral abdominal pain, associated with nausea and vomiting. The nausea vomiting of markedly improved, and her pain is also improved, she describes her pain across her epigastrium left greater than right. She was also shaking at the time she had the vomiting, which was atypical for her. She found some perioral numbness also associated with this. She presented just really does to check her vital sign she tells me. And check a heart rate nurse checked her heart rate was 140. She did have a fairly heavy meal tonight, but she says this pleasant that atypical for her. Had been constipated, but had a normal bowel movement today. No history of previous abdominal surgeries, presents here with her who is very loving MD elicited complaint: nausea, vomiting and abdominal pain Location of pain: epigastric Pain consistency: now resolved Severity: moderate Quality: cramping and stabbing Relieving factors: vomiting Associated symptoms: denies other symptoms Treatment prior to arrival: other (Antacid) Related Data Home Medications ?Medication ?Instructions ?Recorded ?Confirmed prenat.vits,abdirahman,[id number] 1 tab PO QDAY 08/26/21 01/23/24 Allergies Allergy/AdvReac Type Severity Reaction Status Date / Time No Known Allergies Allergy Verified 02/20/24 00:37 Review of Systems Status of ROS: Reports: 10 or more systems reviewed and unremarkable except as noted in History and below [facility] Medical History Concussion (02/26/09) ?S06.0XAA - Concussion with loss of consciousness status unknown, initial encounter (ICD-10) History of varicella ?Z86.19 - Personal history of other infectious and parasitic diseases (ICD- 10) History of hyperthyroidism ?Z86.39 - Personal history of other endocrine, nutritional and metabolic disease (ICD-10) Surgical History S/P fusion of sacroiliac joint (2018) ?Z98.1 - Arthrodesis status (ICD-10) Family History Paternal Grandmother Breast cancer, Onset Age: 76 Paternal Grandfather Heart disease Maternal Grandmother Ovarian cancer, Onset Age: 70 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 What is your current living situation?: I presently have a place to live Problems where you live: no known problems In the past 12 months, utilities in danger of being shut off: no In past 12 months, lack of transportation kept you from medical appts, meetings, work, or getting things needed for daily living: no In the past 12 mos, have been you worried that your food would run out before you had money to buy more?: never true In the past 12 mos, the food you bought just didn't last and you didn't have money to buy more?: never true Smoking Status: Never smoker How often does anyone, including family, friends and others, physically hurt you : never How often does anyone, including family, friends and others, insult or talk down to you: never How often does anyone, including family, friends and others, threaten you with harm: never How often does anyone, including family, friends and others, scream or curse at you: never Exam Narrative: Exam Narrative: Patient is in no distress I see her in room 3, still little bit shaky, alert oriented x3. Denies abdominal pain currently. Pupils equal round reactive to light there is no scleral icterus redness or TMs are normal oropharynx is normal her neck is supple her chest is good air entry bilaterally with no wheezing crackles noted her heart sounds are normal. Her back shows no tenderness to palpation, good air and entry. No wheezes crackles noted. Her abdomen is gravid. No tenderness is elicited, bowel sounds are normal. She moves all extremities independently and well, Ultrasound is use, which shows a heart at 1:40 a.m. nicola active, fundal placenta and baby is moving around. Gallbladder no tenderness negative Pfeiffer sign no pericholecystic fluid. No shadowing suggestive of stones maybe a little bit of shadowing suggestive of sludge. Const: Vital Signs, click to edit/add: Vital Signs - 24 hr 02/20/24 00:33 02/20/24 01:37 Temperature 98.1 F Pulse Rate [Right Pulse Oximeter] 108 H 82 Respiratory Rate 18 16 Blood Pressure [Ri ght Upper Arm] 121/67 104/67 Pulse Oximetry 99 99 Oxygen Delivery Me thod Room Air Room Air Documenting provider has reviewed patient's vital signs: yes Course Course ED Course: She felt the Zofran really help, but she did not want a prescription to take home of this. At this point she is doing better we will lower to go home, follow-up will be if she has worsening. Vital Signs Vital signs: Initial Vital Signs Temperature 98.1 F 02/20/24 00:33 Temperature Source Temporal Artery Scan 02/20/24 00:33 Pulse Rate 108 H 02/20/24 00:33 Pulse Rhythm Regular 02/20/24 00:33 Pulse Strength 3+ Normal 02/20/24 00:33 Respiratory Rate 18 02/20/24 00:33 Blood Pressure 121/67 02/20/24 00:33 Blood Pressure Mean 85 02/20/24 00:33 Blood Pressure Position Supine 02/20/24 00:33 Pulse Oximetry 99 02/20/24 00:33 Oxygen Delivery Method Room Air 02/20/24 00:33 Vital Signs Temperature 98.1 F 02/20/24 00:33 Pulse Rate 108 H 02/20/24 00:33 Respiratory Rate 18 02/20/24 00:33 Blood Pressure 121/67 02/20/24 00:33 Pulse Oximetry 99 02/20/24 00:33 Oxygen Delivery Method Room Air 02/20/24 00:33 Temperature 98.1 F 02/20/24 00:33 Pulse Rate 82 02/20/24 01:37 Respiratory Rate 16 02/20/24 01:37 Blood Pressure 104/67 02/20/24 01:37 Pulse Oximetry 99 02/20/24 01:37 Oxygen Delivery Method Room Air 02/20/24 01:37 Medications Administered Medications: Generic Name Dose Route Start Last Admin Trade Name Freq PRN Reason Stop Dose Admin Acetaminophen 1,000 mg 02/20/24 01:01 02/20/24 01:07 Acetaminophen 500 Mg Tablet PO 02/20/24 01:02 1,000 mg ONCE ONE Administration Ondansetron HCl 4 mg 02/20/24 01:01 02/20/24 01:06 Ondansetron Odt 4 Mg Tab PO 02/20/24 01:02 4 mg ONCE ONE Administration MDM - Nausea/Vomiting/Diarrhea MDM Narrative Medical decision making narrative: During the evaluation of this patient I considered multiple differential diagnosis including life-threatening differentials which are appendicitis, aortic aneurysm, mesenteric ischemia, bowel perforation, ectopic , volvulus and bowel obstruction, other differential diagnosis include but are not limited to inflammatory bowel disease, cholecystitis, pancreatitis, hepatitis, gastritis, GERD, diverticulitis, peptic ulcer disease, pyelonephritis/UTI, renal colic/stone, pelvic inflammatory disease, cervicitis, endometritis, intrauterine , dysfunctional uterine bleeding, ovarian cyst/torsion, spontaneous as well as other etiologies Differential diagnosis includes but is not limited to viral gastroenteritis, drug food poisoning, pyloric stenosis, gastritis, pancreatitis, hepatitis, cholecystitis, appendicitis, bowel obstruction, hyperemesis, cyclic vomiting syndrome, bulimia nervosa, migraine headache, motion sickness and medication side effect. These include the life threatening complications of appendicitis, drug food poisoning and bowel obstruction. She is doing better, through shared decision making she agreed to take some Zofran and a little Tylenol, we will watch her for few minutes if she is doing well, she was reassured would like to go home. I do not think this is bad idea but we did go over worsening pain. His this could be very well an early presentation of biliary colic. Other possibilities include UTI/pyelonephritis, reflux, constipation with bowel spasm. Or early appendicitis, she will need to be vigilant and follow up if ongoing pain or problems, she was comfortable this plan. Medical Records Attestation: I reviewed the patient's medical records. Discharge Plan Discharge Clinical Impression: , Vomiting, Abdominal pain, Anxiety Patient Disposition: Home w/ Parent or Adult Condition: Improved Instructions: Constipation (DC), Abdominal Pain (ED), Abdominal Pain in (ED), Anxiety (ED), at 27 to 30 Weeks (ED) Additional Instructions: Home rest use of medications as directed, return if increasing complaints, abd ominal pain. Light diet. Activity Level: Light activity Prescriptions: No Action prenat.vits,abdirahman,[id number] Tablet 1 tab PO QDAY Follow Up/Referrals: Edmundo Ambrocio MD [Primary Care Provider] - Stand Alone Forms: [facility] Info Instructions
[2024-02-20] MEDS: ONDANSETRON ODT 4 MG TAB PO (01:06)
[2024-02-20] MEDS: ACETAMINOPHEN 500 MG TABLET 1000 MG PO (01:07)
[2024-02-20 01:37] VITALS: BP 104/67; PULSE 82; RESP 16; O2SAT 99
== END 2024-02-20 01:42 | disposition home or self-care (01) ==
LOC: ED 01:13
PROVIDERS: Emergency Provider Family Medicine; PCP Family Medicine
DX: R11.2 Nausea with vomiting, unspecified (principal); F41.9 Anxiety disorder, unspecified; Z3A.28 28 weeks gestation of pregnancy
CPT/HCPCS: 99284; A9270

== ENCOUNTER 2024-02-28 12:38 | Outpatient (CLI) | payer OTHER, SELFPAY | END 2024-02-28 12:39 | disposition home or self-care (01) | LOC: NFLDREF 03-02 08:57 | PROVIDERS: PCP Family Medicine; Referring Provider Family Medicine; Visit Provider Obstetrics & Gynecology | DX: Z34.92 Encounter for supervision of normal pregnancy, unspecified, second trimester (principal) | CPT/HCPCS: 86592 ==

== ENCOUNTER 2024-03-02 08:13 | Outpatient (CLI) | payer OTHER, SELFPAY | END 2024-03-02 08:14 | disposition home or self-care (01) | LOC: NFLDREF 03-04 04:19 | PROVIDERS: PCP Family Medicine; Referring Provider Family Medicine; Visit Provider Obstetrics & Gynecology | DX: R73.09 Other abnormal glucose (principal) | CPT/HCPCS: 82951; 82952 ==

== ENCOUNTER 2024-03-19 09:15 | Outpatient (CLI) | payer OTHER, SELFPAY ==
--- NOTE | 2024-03-19 09:15 | CRLHL7_ITS ---
For Patients: As a result of the Century Cures Act, medical imaging exams and procedure reports are released immediately into your electronic medical record. You may view this report before your referring provider. If you have questions, please contact your health care provider. INDICATION: 29 year-old female. Follow up renal pelviectasis. TECHNIQUE: Transabdominal obstetrical ultrasound. COMPARISON: January 23, 2024. FINDINGS: Single living intrauterine in vertex presentation. Posterior and left-sided placenta laterally. No evidence for placenta previa or marginal previa. heart rate 159 beats per minute. Normal amniotic fluid. Single deepest pocket measurement 4.1 cm. Biparietal diameter 7.9 cm, 31 weeks 4 days, 26th percentile. Head circumference 29.4 cm, 32 weeks 3 days, 25th percentile. Abdominal circumference 29.2 cm, 31 weeks 1 day, 82nd percentile. Femur length 5.9 cm, 30 weeks 5 days, 11th percentile. Composite calculated ultrasound age 32 weeks 0 days with a sonographic due date of May 14, 2024. Estimated weight 1939 g which lies at the 48th percentile. The head to abdominal circumference ratio is normal at 1.01 (0.96-1.14). Biophysical profile score 8/8 with 2 points given each for breathing, movement, tone, and amniotic fluid. Each renal pelvis measures between 5.3 and 5.5 mm. This is within normal limits at 32 weeks gestational (less than 8-10 mm). IMPRESSION: 1. Single living intrauterine in vertex presentation. 2. Composite calculated ultrasound age 32 weeks 0 days with a sonographic due date of May 14, 2024. 3. Estimated weight lies at the 48th percentile. 4. renal pelves are within normal limits measuring between 5.3 and 5.5 mm. Dictated by Lázaro Callahan MD @ 03/19/2024 2:45:33 PM (Electronically Signed)
== END 2024-03-19 09:16 | disposition home or self-care (01) ==
LOC: US 09:15
PROVIDERS: PCP Family Medicine; Visit Provider Obstetrics & Gynecology
DX: O35.EXX0 Maternal care for other (suspected) fetal abnormality and damage, fetal genitourinary anomalies, not applicable or unspecified (principal); Z3A.31 31 weeks gestation of pregnancy
CPT/HCPCS: 76816; 76819

== ENCOUNTER 2024-04-02 14:32 | Outpatient (CLI) | payer OTHER, SELFPAY | END 2024-04-02 14:33 | disposition home or self-care (01) | LOC: NFLDREF 04-04 00:54 | PROVIDERS: PCP Family Medicine; Referring Provider Family Medicine; Visit Provider Obstetrics & Gynecology | DX: Z34.93 Encounter for supervision of normal pregnancy, unspecified, third trimester (principal); Z3A.34 34 weeks gestation of pregnancy | CPT/HCPCS: 82728 ==

== ENCOUNTER 2024-04-13 10:59 | Outpatient (RCR) | payer OTHER, SELFPAY ==
--- NOTE | 2024-04-10 10:11 | URNOTE ---
Prior auth is not required for Infed ([id number]) per [facility]. Ref #[id number]
[2024-04-13 11:13] VITALS: BP 109/71; PULSE 87; RESP 16; TEMP 36.4; O2SAT 98
[2024-04-13] MEDS: IRON DEXTRAN COMPLEX 25 MG in 0.9 % SODIUM CHLORIDE 100 ml 100 ML 402 MG IVPB (12:03)
[2024-04-13 12:25] VITALS: BP 102/68; PULSE 77; RESP 18; TEMP 36.2; O2SAT 98
[2024-04-13] MEDS: IRON DEXTRAN COMPLEX 975 MG in 0.9 % SODIUM CHLORIDE 250 ml 250 ML 270 MG IVPB (13:24)
[2024-04-13 14:33] VITALS: BP 102/66; PULSE 90
[2024-04-13 15:05] VITALS: BP 102/66; PULSE 90
== END 2024-10-10 23:59 | disposition home or self-care (01) ==
LOC: CCIC 10:59
PROVIDERS: PCP Family Medicine; Visit Provider Clinical Nurse Specialist
DX: O99.013 Anemia complicating pregnancy, third trimester (principal); D50.9 Iron deficiency anemia, unspecified
CPT/HCPCS: 96374; J1750; J7050

== ENCOUNTER 2024-04-16 09:20 | Outpatient (CLI) | payer OTHER, SELFPAY | END 2024-04-16 09:21 | disposition home or self-care (01) | LOC: NFLDREF 04-18 07:14 | PROVIDERS: PCP Family Medicine; Referring Provider Family Medicine; Visit Provider Obstetrics & Gynecology | DX: Z34.83 Encounter for supervision of other normal pregnancy, third trimester (principal) | CPT/HCPCS: 87081; 87653 ==

== ENCOUNTER 2024-04-30 08:41 | Outpatient (CLI) | payer OTHER, SELFPAY | END 2024-04-30 08:42 | disposition home or self-care (01) | LOC: NFLDREF 05-01 00:34 | PROVIDERS: PCP Family Medicine; Referring Provider Family Medicine; Visit Provider Obstetrics & Gynecology | DX: Z34.83 Encounter for supervision of other normal pregnancy, third trimester (principal) | CPT/HCPCS: 82728 ==

== ENCOUNTER 2024-05-07 18:42 | Inpatient (IN) | payer OTHER, SELFPAY ==
[2024-05-07] VITALS (23 sets, daily range): BP systolic 74–122; BP diastolic 35–71; PULSE 73–131; TEMP 36.5–36.6; O2SAT 93–100; BMI 26.6
[2024-05-07 19:15] LABS: Basophils Absolute Auto 0.01 K/uL (0.00-0.30); Basophils Percent Auto 0.1 % (0.0-3.0); Eosinophils Absolute Auto 0.08 K/uL (0.00-0.50); Eosinophils Percent Auto 0.8 % (0.0-7.0); Hematocrit 38.4 % (33.0-51.0); Hemoglobin* 12.3 gm/dL (12.0-16.0); Immature Granulocytes Abs Auto 0.05 K/uL (0.00-0.30); Immature Granulocytes Pct Auto 0.5 %; Lymphocytes Percent Auto 15.6 % (20-44); Mean Corpuscular HGB Conc 32 gm/dL (32-36); Mean Corpuscular Hemoglobin 30 pg (26-34); Mean Corpuscular Volume 95 fL (80-100); Monocytes Percent Auto 3.3 % (0.0-11.0); Neutrophils Percent Auto 79.7 % (42.0-72.0); Platelet Count* 254 K/uL (140-440); RDW Coefficient of Variation % 21.8 % (11.5-15.5); Red Blood Count 4.06 m/uL (4.00-5.20); White Blood Count* 9.66 K/uL (4.50-11.00)
[2024-05-07 19:17] LABS: Slide Review Reflex No
[2024-05-07] MEDS: LACTATED RINGERS 1000 ML 1,000 ML 800 ML IV (22:14)
--- NOTE | 2024-05-07 22:34 | W.PM.LDBA ---
Subjective History of Present Illness Time Seen by Provider: 21:00 Date Seen: 05/07/24 Narrative: Patient is being admitted to Labor and Delivery for spontaneous labor after membrane striping in clinic today. She is a 29 year old at 39.0 weeks gestation. Her full history and physical was dictated by Chiara on on 04/23/24. Please see this for details. Denies LOF, vaginal bleeding or abnormal vaginal discharge. George Q1-2 minutes. Specific Issues/Plans G 3 P 2001 Partner: Gregory Son: Romy; Daughter: Chacha Baby: Hamlin gender H&P completed 04/23/2024 by Chiara SANABRIA # Anemia: Hgb at first OB: 11.1. Rec. iron-fortified foods. 10/19/23: 13.0 02/28/2024: hgb 9.5 Recommended Ferrous sulfate 325mg, 2 tablets QOD. Recheck hgb at 34 weeks 04/02/24: 9.4. Iron infusion on 04/13/2024 Dextran # Abnormal pap at first OB visit. Pap: HSIL + other HPV [facility] 11/13 with one biopsy - benign endocervical tissue, inconsistent with her HSIL pap [x] Repeat colpo at 28 weeks 02/28/2024 - no bx, see NDP note [ ] Plan LEEP and ECC at 6 week PP visit given HSIL, (+)HPV pap inconsistent w/ colposcopic bx # FAS with inadequate views of spine [x] f/u 28 week US - tech report says normal but suboptimal position # Mild bilateral pyelectasis on repeat US [x] resolved on 32 week recheck # Elevated 1hr GTT: 160. 03/02/2024: All normal 3hr GTT. Covid: Completed, not up-to-date. Recommended: Declines Flu: 11/2023, got influenza A 03/30/2024 given Tamiflu TDAP: 03/09/24 RSV: Declined GBS neg 04/16 OB - Problem Based A/P Additional Plan (1) : Status: Inactive (2) Spontaneous onset of labor: Status: Acute Plan - AROM at 2049, clear fluid with mucous membrane. Patient tolerate the procedure well. - Ctx 2-3 minutes spontaneously - Pitocin per protocol PRN - Epidural PRN OB Exam Physical Exam Vital signs: Temp Pulse BP Pulse Ox 97.7 F 78 120/67 98 05/07/24 21:05 05/07/24 21:00 05/07/24 21:00 05/07/24 19:11 Narrative: Physical exam: General: No acute distress Psych: Alert and oriented x3, full affect HEENT: Normocephalic, atraumatic Lungs: Unlabored breathing Neuro: No focal deficit. Mentating appropriately Pelvic exam: 3/75/-2, moderate consistency,
[2024-05-07] MEDS: BUPIVACAINE 0.25% PF 10 ML 10 ML ML EPIDURAL (23:31)
[2024-05-07] MEDS: ROPIVACAINE 0.2% 100 ml 100 ML 12 MG EPIDURAL (23:39)
[2024-05-07] MEDS: PHENYLEPHRINE 100 MCG/ML SYRINGE IVP ×2 (23:40→23:46)
--- NOTE | 2024-05-07 23:49 | PM.ANBPRC ---
[facility] Medical History Concussion (02/26/09) ?S06.0XAA - Concussion with loss of consciousness status unknown, initial encounter (ICD-10) History of varicella ?Z86.19 - Personal history of other infectious and parasitic diseases (ICD-10) History of hyperthyroidism ?Z86.39 - Personal history of other endocrine, nutritional and metabolic disease (ICD-10) Surgical History S/P fusion of sacroiliac joint (2018) ?Z98.1 - Arthrodesis status (ICD-10) Family History Paternal Grandmother Breast cancer, Onset Age: 76 Paternal Grandfather Heart disease Maternal Grandmother Ovarian cancer, Onset Age: 70 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 What is your current living situation?: I presently have a place to live Problems where you live: no known problems In the past 12 months, utilities in danger of being shut off: no In past 12 months, lack of transportation kept you from medical appts, meetings, work, or getting things needed for daily living: no In the past 12 mos, have been you worried that your food would run out before you had money to buy more?: never true In the past 12 mos, the food you bought just didn't last and you didn't have money to buy more?: never true Smoking Status: Never smoker How often does anyone, including family, friends and others, physically hurt you: never How often does anyone, including family, friends and others, insult or talk down to you: never How often does anyone, including family, friends and others, threaten you with harm: never How often does anyone, including family, friends and others, scream or curse at you: never Meds Home Medications and Allergies Home Medications ?Medication ?Instructions ?Recorded ?Confirmed ?Type prenat.vits,abdirahman,[id number] 1 tab PO QDAY 08/26/21 05/07/24 History Allergies Allergy/AdvReac Type Severity Reaction Status Date / Time No Known Allergies Allergy Verified 05/07/24 19:22 Results Labs Labs: Laboratory Results - last 24 hr 05/07/24 19:05 WBC 9.66 RBC 4.06 Hgb 12.3 Hct 38.4 MCV 95 MCH 30 MCHC 32 RDW Coeff of Bruna 21.8 H Plt Count 254 Neut % (Auto) 79.7 H Lymph % (Auto) 15.6 L [place] % (Auto) 3.3 Eos % (Auto) 0.8 Baso % (Auto) 0.1 Neut # (Auto) 7.70 H Lymph # (Auto) 1.50 [place] # (Auto) 0.30 Eos # (Auto) 0.08 Baso # (Auto) 0.01 Abs Immat Gran (auto) 0.05 Imm/Tot Granulo (auto) 0.5 Blood Type O Positive Antibody Screen NEGATIVE Vital Signs Vital Signs: Last Vital Signs Temp 97.7 F 05/07/24 21:05 Pulse 73 05/07/24 23:48 BP 112/71 05/07/24 23:48 Pulse Ox 100 05/07/24 23:33 Weight: 70.307 kg Height: 162.56 cm Anesthesia Procedures Epidural Insertion Patient Location: OB Start Time: 23:00 Stop Time: 23:45 Start Date: 05/07/24 Stop Date: 05/07/24 Reason for Block: procedure for pain Patient Position: sitting Performed By: Jeff Patel Preanesthetic Checklist: IV checked, risks and benefits discussed, surgical consent, monitors and equipment checked, pre-op evaluation, timeout performed and anesthesia consent Prep: chlorhexidine gluconate Monitoring: blood pressure monitoring, continuous pulse oximetry and heart rate Approach: midline Vertebral Space: lumbar (1-5) Epidural Technique: [place] saline Needle Type: Tuohy needle Injection Technique: continuous catheter Needle gauge: 17 Needle Length (cm): 10 cm Needle Insertion Depth (cm): 6 Catheter Gauge: 19 Catheter Type: multi-orifice Catheter at skin depth (cm): 12 Test Dose Result: negative and lidocaine 1.5% with epinephrine 1 to 200,000
[2024-05-07] MEDS: ePHEDrine sulfate 5 MG/ML inj 10 MG IVP ×2 (23:52→23:57)
[2024-05-08] VITALS (33 sets, daily range): BP systolic 84–109; BP diastolic 44–71; PULSE 69–105; RESP 16–20; TEMP 36.4–36.8; O2SAT 97–98
[2024-05-08] MEDS: OXYTOCIN 30 unit/500 ML in NS 30 UNIT/500 ML BAG IVPB (00:47)
[2024-05-08] MEDS: ePHEDrine sulfate 5 MG/ML inj 10 MG IVP (01:33)
[2024-05-08] MEDS: ONDANSETRON 2 MG/ML inj 4 MG IV (01:42)
--- NOTE | 2024-05-08 04:01 | W.PM.VAGDEL1 ---
Procedure Procedure Done: Global Narrative: The patient is a 29 year-old admitted on 05/07/24 at 39 and 0/7 weeks gestation for spontaneous labor. GBS negative Labor Analgesia: Epidural Pitocin: For augmentation of labor, and active 3rd stage management AROM: 05/07/24 at 2050, with slightly blood tinged fluid Complete: 05/08/24 at 0332 Pushin05/08/24 at 0337 heart tones during second stage were Cat II: Deep variable decelerations down the 60s with pushing. Recovered spontaneously, moderate variability, and station was +3 at the time of pushing. Fetus was complete OP and thus she initially had poor descent. Manual rotation performed to help support rotation to OA. Patient brought fetus head to shortly after manual rotation. At 0344 a viable female delivered in vertex OA presentation over intact via spontaneous vaginal delivery. The infant's body was delivered in the usual manner without difficulty. The was placed on maternal abdomen. The cord was clamped and cut after a 30-60 second delay. The nose and mouth were bulb suctioned. Infant weight: pending. 7 at 1 minute and 7 at 5 minutes. Shoulder dystocia: No. Nuchal cord: No Placenta delivered spontaneously and complete at 0349 with a 3-vessel cord. Placenta examined and noted to be complete. The cervix and vagina were inspected for lacerations, and none were noted. Laceration(s): None Complications: None Estimated blood loss: 50 cc Sponge and needles counts are correct. Mother and infant were stable at the time of this note.
[2024-05-08] MEDS: DOCUSATE SODIUM 100 MG CAPSULE PO ×2 (08:37→19:53)
[2024-05-08] MEDS: ACETAMINOPHEN 500 MG TABLET 1000 MG PO ×2 (09:21→17:33)
--- NOTE | 2024-05-08 12:05 | PM.ANPOST ---
Post Anesthesia Note Post Anesthesia Note Patient seen: Inpatient Respiratory Status: adequate Cardiovascular Status: adequate Mental Status: baseline Pain: adequate Temp: baseline Anesthetic awareness: N/A Complications: none Follow care: none
[2024-05-08] MEDS: IBUPROFEN 600 MG TABLET PO (13:58)
[2024-05-09] MEDS: ACETAMINOPHEN 500 MG TABLET 1000 MG PO ×2 (00:09→07:46)
[2024-05-09 04:04] VITALS: BP 100/67; PULSE 68; RESP 18; TEMP 36.4; O2SAT 97
[2024-05-09] MEDS: IBUPROFEN 600 MG TABLET PO (04:24)
[2024-05-09 06:33] LABS: Hemoglobin* 10.4 gm/dL (12.0-16.0)
[2024-05-09 07:27] VITALS: BP 100/69; PULSE 70; RESP 18; TEMP 36.8; O2SAT 97
--- NOTE | 2024-05-09 07:35 | PM.OBDSVD1 ---
DS: Providers Provider Date Seen: 05/09/24 Date of admission: 05/07/24 18:42 Primary care physician: Edmundo Ambrocio MD Admitting Clinician: Chaparrita Neri MD Attending Physician on discharge: Chiara SANABRIA Date of Discharge: 05/09/24 DS: Diagnosis Discharge Diagnosis (1) (normal spontaneous vaginal delivery): Status: Acute (2) care and examination of lactating mother: Status: Acute Exam Narrative: Exam Narrative: GENERAL APPEARANCE:? normal affect, alert, no distress MOOD:? appropriate CHEST:? clear to auscultation HEART:? regular rate and rhythm ABDOMEN:? soft, non-tender the uterine fundus is 2 finger breadths below At Umbilicus, Midline and is appropriate for the stage of recovery. PERINEUM:? deferred EXTREMITIES:? normal and no edema Const: Vital Signs, click to edit/add: Vital Signs - 24 hr 05/08/24 08:37 05/08/24 12:33 05/08/24 17:20 Temperature 97.5 F L 97.8 F 98.2 F Pulse Rate [Pulse Oximeter] Respiratory Rate 18 18 16 Blood Pressure [Le ft Arm] 99/63 102/66 102/63 Pulse Oximetry 97 97 98 Oxygen Delivery Me thod Room Air Room Air Room Air 05/08/24 19:54 05/08/24 23:59 05/09/24 04:04 Temperature 97.6 F Pulse Rate [Pulse Oximeter] 72 72 68 Respiratory Rate 18 20 18 Blood Pressure [Le ft Arm] 105/71 102/59 L 100/67 Pulse Oximetry 97 98 97 Oxygen Delivery Me thod Room Air Room Air Room Air OB - DS: Summary Hospital Course Hospital Course: Enriqueta is a 29 y.o. G 3 P 3003 who was admitted to [facility] for spontaneous labor..? She had a NVD that was uncomplicated. The patient feels well.? The pain is well controlled with current medications.? She has no new complaints.? She is breast feeding and reports things are going well. the patient has done well.? Vitals have been stable.? She has remained afebrile.? Has a good appetite, is tolerating a general diet.? She is voiding without difficulty.? She is passing gas and has not had a bowel movement.? She is ambulating and denies any dizziness.? Has small amount of rubra lochia. She is planning condoms for prevention.? ?? Problems: none? ?? plan:? Discharge home with baby.? Follow up in 2 weeks and 6 weeks.? , may see if needed? Hgb 10.4. ? Peripartum Data delivery method: Vaginal Laceration description: None Episiotomy description: None complications: none Infant Gender: Female Discharge Plan: Home Status at Discharge Overall status at discharge: patient is progressing back to baseline Time Spent with Patient Time attestation: Total time spent providing and/or coordinating discharge services: Time spent: Less than 30 minutes Discharge Plan Discharge Disposition: Home, Self-Care Date of Admission: 05/07/24 18:42 Attending Provider on Discharge: Ibis Bustos Primary Care Provider: Edmundo Ambrocio Condition: Stable Anticipated Discharge Date/Time: 05/09/24 12:00 Discharge Medications: Continued prenat.vits,abdirahman,[id number] Tablet 1 tab PO QDAY Discharge Orders: Discharge Order (Routine); Ordered 05/09/24 Ordered By: Ibis Bustos Patient Education: OB Care, OB Vaginal/Breast Feeding Additional Instructions: Discharge instructions were reviewed with the patient including signs and symptoms of infection and home going medications Nothing vaginally for 6 weeks: no tampons or intercourse Do not drive while taking narcotic pain medication(s) Off Work or School for 6 weeks Symptoms to report to doctor: Bleeding that saturates more than one pad per hour Passing clots larger than the size of a golf ball Pain not relieved by prescribed medication Fever above 100.4 degrees Fahrenheit A foul vaginal odor Difficulty in emotions, mood, and functions Thoughts of hurting yourself and/or Painful, reddened area in your breast Any drainage, redness, or tenderness in your IV/epidural site Severe headache that doesn't improve after taking medications Changes in vision, including temporary loss of vision, blurred vision, and/or light sensitivity Upper abdominal pain (usually under ribs on the right side) Decrease in urination or painful, frequent urinating Chest pain Shortness of breath Tenderness or pain with redness and/swelling in the calf(s) of your leg 2-week visit: discuss feeding concerns, review control options and screen for anxiety/depression. 6-week visit for an annual exam. consultation services are available to all mothers and babies for the first year after delivery.? To make an appointment, please call [phone]. For pain control of perineum, breast and pelvic pain, take 600 mg Ibuprofen every 6 hours as needed by mouth or 1000 mg acetaminophen (Tylenol) every 6 hours by mouth as needed. You can alternate these so you are taking something every 3 hours as needed. A heating pad can also be used for your abdomen or breasts. You may also take docusate sodium up to twice daily to soften your stools and help to prevent constipation. You may wean off of it when your stools return to normal.? Activity Level: Activity as Tolerated Discharge Diet: Regular Follow Up Appointments: [facility] [Provider Group] Forms: [employer] Info Instructions
[2024-05-09] MEDS: DOCUSATE SODIUM 100 MG CAPSULE PO (07:47)
[2024-05-09 17:59] LABS: Rapid Plasma Reagin (RPR) Non Reactive (Non Reactive)
== END 2024-05-09 11:45 | disposition home or self-care (01) | DRG 807 ==
LOC: OB OUT 18:43 → OB 18:43
PROVIDERS: Admitting Provider Obstetrics & Gynecology; PCP Family Medicine; Visit Provider Obstetrics & Gynecology
DX: O99.02 Anemia complicating childbirth (principal); Z37.0 Single live birth; D64.9 Anemia, unspecified; O64.0XX0 Obstructed labor due to incomplete rotation of fetal head, not applicable or unspecified; O76 Abnormality in fetal heart rate and rhythm complicating labor and delivery; Z3A.39 39 weeks gestation of pregnancy
CPT/HCPCS: 01967; 36415; 85018; 85025; 86592; 86850; 86900; 86901; A9270; J0665; J2371; J2405; J2795; J7120

== ENCOUNTER 2024-06-13 15:12 | Outpatient (CLI) | payer OTHER, SELFPAY | END 2024-06-13 15:13 | disposition home or self-care (01) | PROVIDERS: PCP Family Medicine; Visit Provider Family Medicine | DX: R10.11 Right upper quadrant pain (principal); R82.90 Unspecified abnormal findings in urine | CPT/HCPCS: 80053; 83690; 86140; 87086 ==

== ENCOUNTER 2024-06-14 13:59 | Outpatient (CLI) | payer OTHER, SELFPAY ==
--- NOTE | 2024-06-14 14:00 | CRLHL7_ITS ---
For Patients: As a result of the Century Cures Act, medical imaging exams and procedure reports are released immediately into your electronic medical record. You may view this report before your referring provider. If you have questions, please contact your health care provider. INDICATION: Right upper quadrant pain TECHNIQUE: CT abdomen and pelvis with 79 mL Isovue 370 intravenous contrast. COMPARISON: CT 10/19/2023 FINDINGS: Lower chest: Unremarkable. Liver: Normal in size and attenuation. No suspicious masses. Gallbladder and bile ducts: No stones or inflammation. No biliary dilatation. Pancreas: Unremarkable. No mass or inflammation. Spleen: Normal in size. No masses. Adrenal glands: Normal in size. No nodules. Kidneys: Normal in size. No suspicious masses, stones, or hydronephrosis. GI tract: Large amount of stool within the colon normal appendix. Vasculature: Abdominal aorta is normal in caliber. Lymph nodes: No lymphadenopathy. Peritoneum/Abdominal Wall: Unremarkable. No sign of mass or infiltration. No free air or significant free fluid. Pelvis: Unremarkable. No pelvic masses. Bones: Right sacroiliac arthrodesis. No suspicious bone lesions are seen IMPRESSION: 1. No acute findings in the abdomen or pelvis. Please note that all CT scans at this facility use dose modulation, iterative reconstruction, and/or weight-based dosing when appropriate to reduce radiation dose to as low as reasonably achievable. Dictated by Margaret Berumen MD @ 06/17/2024 8:14:20 AM (Electronically Signed)
== END 2024-06-14 14:00 | disposition home or self-care (01) ==
LOC: CT 14:00
PROVIDERS: PCP Family Medicine; Visit Provider Family Medicine
DX: R10.11 Right upper quadrant pain (principal)
CPT/HCPCS: 74177; Q9967